=== PATIENT | male | born 1960 | race Caucasian/White ===

== ENCOUNTER 2023-09-27 06:46 | Day surgery (SDC) | payer BC ==
[~2023-09-27] VITALS: Ht 177.8 cm; Wt 85.3 kg
[~2023-09-27 06:46] MED LIST: AMOX/K CLAV875 M1 PO; AUGMENTIN875TAB PO; BRILINTA60 MG PO; BRILINTA90 MG PO; CARVEDILOL25 MG PO; COREG CR80 MG PO; CRESTOR20 MG PO; CYANOCOBALAM IM; EC-81 ASPIRIN81 MG PO; EZETIMIBE10 MG PO; FAMOTIDINE20 M1 PO; FISH OIL1000 MG PO; FUROSEMIDE20 MG PO; HYDROCHLOROT25 MG PO; ISOSORB MONO30 MG PO; ISOSORBIDE MONO60 MG PO; JANUVIA25 MG PO; JANUVIA50 MG PO; JARDIANCE10 MG PO; JARDIANCE25 MG PO; LISINOPRIL20 M1 PO; LORTAB5 PO; LOVAZA1 CAP PO; METFORMIN HCL1000 MG PO; METFORMIN500 MG PO; METOLAZONE2.5 MG PO; METOPROLOL100 M1 PO; MULTI 50+ PO; NITROSTAT0.4 MG SL; PRASUGREL10 MG PO; PROMETHAZINE HY25 M1 PO; QUINAPRIL10 MG PO; QUINAPRIL20 MG PO; RANOLAZINE ER500 MG PO; ROSUVASTATIN CA40 MG PO; SOMA350 MG PO; TRULICITY0.75 MG/0. IM; TRULICITY3 MG/0.5 M SI; VASCEPA1 GM PO; VENLAFAXINE HCL75 MG PO; VIBRAMYCIN100 M2 PO; VITAMIN C500 MG PO; VITAMIN D35000 UNIT PO; ZETIA10 MG PO
[2023-09-27] MEDS ORDERED: SODIUM CHLORIDE 0.9% 1,000 ML IV ONE (07:07)
[2023-09-27] MEDS ORDERED: FAMOTIDINE 10MG/ML 2ML SDV IV ONE (07:07)
[2023-09-27 08:27] VITALS: BP 148/104
[2023-09-27] MEDS ORDERED: STERILE WATER FOR IRRIGATION 1,000 ML BTL IR ONE ×2 (12:29→12:30)
[2023-09-27] MEDS ORDERED: LIDOCAINE HCL 2% 2ML SDV IV ONE (13:25)
[2023-09-27] MEDS ORDERED: PROPOFOL 200 MG/20 ML VIAL IV ONE (13:25)
[2023-09-27] MEDS ORDERED: GLYCOPYRROLATE 0.2 MG/ML IV ONE (13:25)
== END 2023-09-27 08:52 | disposition home or self-care (01) | DRG 392 ==
LOC: ENDO 06:46
PROVIDERS: ATTEND Internal Medicine Gastroenterology
PROC: 0DB98ZX Excision of Duodenum, Via Natural or Artificial Opening Endoscopic, Diagnostic (ICD-10-PCS; principal; 2023-09-27)
PROC: 0DB78ZX Excision of Stomach, Pylorus, Via Natural or Artificial Opening Endoscopic, Diagnostic (ICD-10-PCS; 2023-09-27)
PROC: 0DB48ZX Excision of Esophagogastric Junction, Via Natural or Artificial Opening Endoscopic, Diagnostic (ICD-10-PCS; 2023-09-27)
DX: K21.00 Gastro-esophageal reflux disease with esophagitis, without bleeding (principal); K29.70 Gastritis, unspecified, without bleeding; K29.80 Duodenitis without bleeding; K31.9 Disease of stomach and duodenum, unspecified; E11.9 Type 2 diabetes mellitus without complications; Z79.84 Long term (current) use of oral hypoglycemic drugs